=== PATIENT | male | born 1985 | race American Indian/Alaskan Native ===

== ENCOUNTER 2018-05-05 08:23 | Emergency (ER) | payer OTHER ==
[2018-05-05] MEDS ORDERED: ADRENALINE P/F SUB-Q ONE (08:30)
[2018-05-05] MEDS ORDERED: ADRENALIN ONE (08:37)
[2018-05-05 09:22] LABS: Hematocrit 43.8 % (35.5-45.6); Hemoglobin 14.4 gm/dl (11.8-15.2); Mean Corpuscular HGB Conc 33 % (32-34); Mean Corpuscular Hemoglobin 30 pg (28-32); Mean Corpuscular Volume 90 fl (84-94); Platelet Count 273 K/mm3 (140-440); Red Blood Count 4.88 M/mm3 (3.65-5.03); Red Cell Distribution Width 13.3 % (13.2-15.2)
--- NOTE | 2018-05-05 09:26 | XRay Report ---
AP CHEST: HISTORY: Allergic reaction AP view of the chest demonstrates a normal mediastinal and cardiac contour with clear lungs and normal bony and soft tissue structures. IMPRESSION: Unremarkable AP chest.
[2018-05-05 09:43] LABS: Albumin 4.1 g/dL (3.9-5); BUN/Creatinine Ratio 15; Blood Urea Nitrogen 15 mg/dL (9-20); Calcium 9.1 mg/dL (8.4-10.2); Hemolysis Index 99
[2018-05-05 09:44] LABS: Alanine Aminotransferase 44 units/L (7-56)
--- NOTE | 2018-05-05 10:20 | Emergency Department Report ---
HPI - General Chief Complaint: Allergic Reaction Time Seen by Provider: 05/05/18 10:13 - HPI HPI: Patient presents with swelling of the lower lip, of spontaneous onset approximately 6 hours prior to arrival. He had a mild cough over the past couple days, and reports that he takes lisinopril, for blood pressure, which he has been taking for several months. He has been managed at [facility], under the care of Dr. Migdalia Motta. He does not smoke, has not had any unusual foods, no other exposures, No fever chills or diaphoresis. Patient reports no difficulty breathing, no wheezing, no skin rash, no abdominal pain, no nausea or vomiting. 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 ED Past Medical Hx - Past Medical History Previous Medical History?: Yes Hx Hypertension: Yes - Surgical History Past Surgical History?: Yes Additional Surgical History: R fibula, L thumb - Social History Smoking Status: Former Smoker Substance Use Type: Alcohol - Medications Home Medications: Home Medications Medication Instructions Recorded Confirmed Last Taken Type Diltiazem HCl [Cardizem LA] 120 mg PO DAILY #30 tab.er.24h 05/05/18 Unknown Rx Hydrocodone/Chlorphen P-Stirex 5 ml PO BID PRN #120 mekhi.er.12h 05/05/18 Unknown Rx [HYDROcodone-Chlorphen ER Susp] ED Review of Systems ROS: Stated complaint: ALERGIC REACTION Other details as noted in HPI Comment: All other systems reviewed and negative Constitutional: denies: chills, fever ENT: denies: throat pain Respiratory: cough. denies: shortness of breath Cardiovascular: denies: chest pain, palpitations, dyspnea on exertion, edema, syncope Endocrine: no symptoms reported Gastrointestinal: denies: abdominal pain, nausea, diarrhea Genitourinary: denies: urgency, dysuria Musculoskeletal: denies: back pain, joint swelling, arthralgia Skin: denies: rash, lesions Neurological: denies: headache, weakness, paresthesias Psychiatric: denies: anxiety, depression Hematological/Lymphatic: denies: easy bleeding, easy bruising Physical Exam - Physical Exam Vital Signs: Vital Signs 05/05/18 08:33 Temperature 36.8 C Pulse Rate 67 Respiratory 14 Rate Blood Pressure 150/117 O2 Sat by Pulse 100 Oximetry General: No acute distress Physical Exam: Skin: Warm and dry, normal turgor, no urticaria, no rash or other rupture in, no ecchymosis or petechiae HEENT: Moderate angioedema limited to lower lip, no edema of the upper lip or oropharyngeal cavity, airway is patent, Normocephalic, nontender, pupils equal round and reactive, no conjunctival injection, no facial swelling otherwise. Neck: Nontender, without swelling, airway is patent, swallowing intact, thyroid is normal, no JVD Chest: Nontender, no bony tenderness Respiratory: lungs clear to auscultation, without wheezes rales or rhonchi Abdomen: Soft, flat, nontender, no rebound or guarding, normal bowel sounds to auscultation. Extremities: Nontender, full range of motion, no arthralgias, no joint effusions , no pedal edema Back: Normal to inspection, nontender, no CVA tenderness, no spine tenderness ED Course Vital Signs 05/05/18 08:33 Temperature 36.8 C Pulse Rate 67 Respiratory 14 Rate Blood Pressure 150/117 O2 Sat by Pulse 100 Oximetry ED Medical Decision Making - Lab Data Result diagrams: 05/05/18 09:13 05/05/18 09:13 - Medical Decision Making This patient has angioedema of the lower lip, with no respiratory compromise, and a history of taking lisinopril over the past few months. This is typical of an INGRID inhibitor reaction, and patient was treated with a trial of Solu- Medrol, epinephrine, and Benadryl, for signs of typical allergic reaction, the patient noticed no change. This is typical of complement reaction, rather than true allergic reaction, the patient can be managed expectantly, as his airway is patent. He will be observed, and will be discontinued on lisinopril, switched to Cardizem, and referred back to his physician next week. - Differential Diagnosis angioedema, INGRID inhibitor reaction, allergic reaction Critical Care Time: No Critical care attestation.: If time is entered above; I have spent that time in minutes in the direct care of this critically ill patient, excluding procedure time. 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 There is no specific treatment for this, but your swelling will subside spontaneously once you stop taking lisinopril. Because this is a class-specific reaction, you should also avoid any other medicines in the INGRID Inhibitor class, which are given to treat high blood pressure, so always ask if any new medications for blood pressure belong in the INGRID Inhibitor class. We are starting you on Cardizem, 120 mg long acting, for your blood pressure, which is NOT in the INGRID inhibitor class, and should be safe for you to take. Take one tablet daily for your blood pressure control. We have given you work release through the weekend, and although you should avoid exertion, you may be up and around at home. There are no specific measures to take to make the swelling go down, but swelling will resolve spontaneously over the next few days. Return anytime if you have any worsening of swelling, wheezing, or other difficulty breathing, Have recheck with Dr. Motta next week to reassess your blood pressure and review the adequacy of control with Cardizem. Prescriptions: Diltiazem HCl [Cardizem LA] 120 mg PO DAILY #30 tab.er.24h Hydrocodone/Chlorphen P-Stirex [HYDROcodone-Chlorphen ER Susp] 5 ml PO BID PRN # 120 mekhi.er.12h PRN Reason: Cough Referrals: PRIMARY CARE, [Primary Care Provider] - 3-5 Days Forms: Work/School Release Form(ED) Time of Disposition: 10:25
[2018-05-05 11:12] VITALS: BP 137/94
== END 2018-05-05 11:14 | disposition home or self-care (01) ==
LOC: ED 08:23
DX: T78.3XXA Angioneurotic edema, initial encounter (principal); R05 Cough; I10 Essential (primary) hypertension; Z88.8 Allergy status to other drugs, medicaments and biological substances; Z87.891 Personal history of nicotine dependence; X58.XXXA Exposure to other specified factors, initial encounter; Y93.89 Activity, other specified; Y99.8 Other external cause status; Y92.89 Other specified places as the place of occurrence of the external cause
CPT/HCPCS: 36415; 71045; 80053; 85027; 96372; 99284; J0171